=== PATIENT | female | born 1945 | race Caucasian/White ===

== ENCOUNTER → 2016-03-14 | Outpatient (CLI) | payer OTHER, MEDICARE ==
--- NOTE | 2016-03-14 14:23 | US ---
Thyroid ultrasound History: Follow-up thyroid nodules. Findings: Right lobe thyroid: Thyroid nodules once again identified as follows: Upper pole right lobe, slightly hypoechoic mildly heterogeneous solid nodule, mild internal color anya w enhancement, 6 x 5 x 3 mm (previously 6 x 5 x 3 mm) Lower pole right lobe thyroid, slightly hypoechoic solid nodule with mild heterogeneous echotexture a nd internal color flow enhancement, 6 x 4 x 6 mm (previously 5 x 3 x 5 mm) No additional nodules are seen in the right. There is mild diffuse heterogeneous echotexture of the r ight lobe. The right lobe in total measures 4.1 x 1.7 x 0.7 cm. Left lobe thyroid: Thyroid nodules once again identified as follows: Mildly heterogeneous nodule mid portion left lobe of thyroid posteriorly, mild internal color flow en hancement, 14 x 11 x 11 mm (previously February 15, 2014, 7 x 9 x 7 mm; August 13, 2012, 16 x 12 x 13 mm) Dominant heterogeneous solid nodule lower pole left lobe with a few cystic central components and yara e internal color flow enhancement, 40 x 32 x 47 mm (previously 33 x 35 x 26 mm) Incidental benign-appearing colloid cyst upper pole left lobe with small mural nodule. Additional echogenic solid nodule with hypoechoic margin mid to upper left lobe thyroid anteriorly, 8 x 6 x 4 mm (previously 7 x 5 x 4 mm) No new nodules are seen on the left. The left lobe of the thyroid in total measures 6.3 x 3.9 x 3.3 c m. Isthmus: Hypoechoic solid nodule within the isthmus anterior to the trachea, 7 x 5 x 8 mm (previously 8 x 5 x 5 mm) Impression: 1. Allowing for slight difference in technique, there is relatively stable bilateral thyroid nodules with the largest nodule lower pole left lobe of the thyroid. Consider follow-up ultrasound in 1-2 yea rs to confirm stability.
== END ==
LOC: BMCIMAGING 08:57
PROVIDERS: ATTEND Internal Medicine
DX: E04.2 Nontoxic multinodular goiter (principal); E78.00 Pure hypercholesterolemia, unspecified; E87.1 Hypo-osmolality and hyponatremia; M85.80 Other specified disorders of bone density and structure, unspecified site; Z79.899 Other long term (current) drug therapy
CPT/HCPCS: 76536-PO; 84481-90

== ENCOUNTER → 2016-03-16 | Outpatient (CLI) | payer OTHER, MEDICARE ==
--- NOTE | 2016-03-18 18:39 | DX ---
DEXA Bone Densitometry Technique: DEXA scan was performed on [employer] W Bone Densitometer Indication:Screening examination. Comparator Study: August 13, 2012. Results: Lumbar Spine BMD: 0.932 T-score: -1.0 Prior BMD: 0.869 % change: 7.3% Total Hip (Right) BMD: 0.793 T-score: -1.2 Femoral Neck (Right) BMD: 0.726 T-score: -1.1 Total Hip (Left) BMD: 0.805 T-score: -1.1 Prior BMD: 0.843 % change: -4.5% Femoral Neck (Left) BMD: 0.676 T-score: -1.6 Conclusion: Osteopenia. Additional Comments: In comparison to the previous study from August 2012, there has been a significant increase in the bone mineral density of the lumbar spine and a significant decrease in the bone mine ral density of the total left hip. By FRAX calculation the estimated 10 year probability of any major osteoporotic fracture is 8.7% and estimated 10 year probability of hip fracture is 1.2%. Consider repeating the study in two years or a s clinically indicated. Note: The risk of osteoporotic fractures increases approximately twofold for each 1.0 SD decrease in T-score. The T-score represents the standard deviations from a young normal, same sex, reference po pulation. Low bone density is not the only risk factor for fracture. Clinical factors to consider include fall risk, previous osteoporotic fractures, family history of fractures, smoking, and low body weight. Patients who have an unexpectedly low BMD may need to be evaluated for secondary causes of low bone m ineral density. In comparing the present study to a prior study, lack of a significant increase or decrease in BMD ma y signify efficacy of the patient's present treatment. Bone mineral density measurements performed with densitometers produced by different manufacturers ar e not comparable. For the most reproducible BMD measurement, subsequent exams should be performed on the same densitometer.
== END ==
LOC: BMCIMAGING 13:49
PROVIDERS: ATTEND Internal Medicine
DX: Z13.820 Encounter for screening for osteoporosis (principal); M85.80 Other specified disorders of bone density and structure, unspecified site

== ENCOUNTER → 2018-05-22 | Outpatient (CLI) | payer OTHER, MEDICARE | LOC: BMCIMAGING 10:04 | PROVIDERS: ATTEND Internal Medicine | DX: E04.1 Nontoxic single thyroid nodule (principal) | CPT/HCPCS: 76536-PO ==